=== PATIENT | female | born 1945 | race Caucasian/White ===

== ENCOUNTER 2019-08-30 20:13 | Emergency (ER) | payer MEDICARE, MEDICAID, SELFPAY ==
[2019-08-30 20:23] VITALS: BP 139/66; PULSE 100; RESP 16; TEMP 36.6; O2SAT 97
--- NOTE | 2019-08-30 20:41 | DI.RAD.S_ITS ---
PROCEDURE: XR CHEST 1V INDICATIONS: flu-like symptoms TECHNIQUE: One view of the chest was acquired. COMPARISON: None. FINDINGS: Surgical changes and devices: Cardiac defibrillator is unremarkable. Lungs and pleura: Lungs are clear. No pleural effusions or pneumothorax. The lung volumes are large and the diaphragms are flattened suggesting emphysema. Mediastinum: Mediastinal contours appear normal. Heart size is normal. Bones and chest wall: No suspicious bony lesions. Overlying soft tissues appear unremarkable. IMPRESSION: No acute cardiopulmonary findings. Emphysematous change. Dictated by: Daysi Law M.D. on 08/30/2019 at 21:34 Approved by: Daysi Law M.D. on 08/30/2019 at 21:34
[2019-08-30 20:50] VITALS: BP 176/70; PULSE 98; RESP 30; O2SAT 98
[2019-08-30 21:14] LABS: Add Manual Diff / Slide Review NO; Basophils Absolute Auto 100 /uL (0-100); Basophils Percent Auto 1.5 % (0-2); Eosinophils Absolute Auto 300 /uL (0-450); Eosinophils Percent Auto 4.8 % (2-4); Hematocrit 30.2 % (36-46); Hemoglobin 10.3 g/dL (12.0-16.0); Lymphocytes Absolute Auto 1100 /uL (1100-4500); Lymphocytes Percent Auto 18.1 % (25-40); Mean Corpuscular HGB Conc 34.2 % (30-36); Mean Corpuscular Hemoglobin 30.3 PG (26-34); Mean Corpuscular Volume 88.6 fL (80-100); Monocytes Absolute Auto 700 /uL (0-900); Monocytes Percent Auto 11.3 % (3-14); Neutrophils Absolute Auto 4000 /uL (1500-7000); Neutrophils Percent Auto 64.3 % (50-75); Platelet Count 287 X10^3/uL (150-400); Red Blood Cell Count 3.41 X10^6/uL (4.0-5.2); White Blood Cell Count 6.3 X10^3/uL (4.5-11.0)
[2019-08-30 21:22] LABS: Lactate (Lactic Acid) 0.9 mmol/L (0.7-2.1)
[2019-08-30 21:37] LABS: Alanine Aminotransferase 11 IU/L (<35); Albumin 4.3 g/dL (3.5-5.0); Albumin Globulin Ratio 1.4 (1.0-2.8); Alkaline Phosphatase 92 U/L (38-126); Aspartate Aminotransferase 24 IU/L (14-36); BUN Creatinine Ratio 9.9 (6-22); Bilirubin Total 0.3 mg/dL (0.2-1.3); Blood Urea Nitrogen 78 mg/dL (7-17); Calcium 9.3 mg/dL (8.4-10.2); Carbon Dioxide 12 mmol/L (22-32); Chloride 109 mmol/L (98-107); Creatine Kinase 104 U/L (30-135); Globulin 3.1 g/dL (1.7-4.1); Glucose 100 mg/dL (80-110); HEMOLYSIS < 15 (0-50); Sodium 137 mmol/L (137-145); Total Protein 7.4 g/dL (6.3-8.2)
[2019-08-30 21:40] LABS: C-Reactive Protein Quant < 0.5 mg/dL (<1.0); Potassium 5.7 mmol/L (3.4-5.1)
[2019-08-30] MEDS: SODIUM CHLORIDE 0.9% 1,000 ML 125 ML IV (21:40)
[2019-08-30 21:47] LABS: NT-proBNP (BNP-Adult 18+) 10900 pg/mL (<125); Troponin I 0.016 ng/mL (0.01-0.034)
[2019-08-30 21:50] LABS: CKMB % Relative Index 1.7 % (1.5-5.0); Creatine Kinase MB 1.81 ng/mL (<2.37)
[2019-08-30 21:53] LABS: Procalcitonin < 0.05 ng/mL (<0.5)
[2019-08-30 21:55] VITALS: BP 164/70; PULSE 90; RESP 30; O2SAT 98
--- NOTE | 2019-08-30 21:56 | PC.NURSE ---
Pt states she feels as if she may have to void but is only able to dribble. Has noted decreased urinary output over past weeks. today I think I peed earlier. Voided < 20 cc. Dip + but QNS for micro. sent for culture.
[2019-08-30 22:10] LABS: Ferritin 70 ng/mL (11-264)
--- NOTE | 2019-08-30 22:22 | ED.NAVMDI ---
HPI - Nausea/Vomiting/Diarrhea General Chief complaint: Nausea/Vomiting/Diarrhea Stated complaint: Nausea, Stomach Pain, Cloudy Feeling Time Seen by Provider: 08/30/19 20:43 Source: patient and family (Daughter) Mode of arrival: Ambulatory Limitations: no limitations History of Present Illness HPI Narrative: Patient is a 73-year-old female brought in by her daughter from [facility] for evaluation of several weeks/ month of nausea, subjective fevers, abdominal pain, and feeling ?foggy? and potentially having some altered mental status. Patient is normally alert and oriented x3 and lives on her own. She does admit that she does not go and see a doctor very often. Back in 2017 patient sustained a cardiac arrest related to a surgical procedure. She currently has a defibrillator/pacemaker in place. Patient's daughter who is with her at bedside states she drove from [facility] to come and see the patient in order to bring her to the doctor because the patient would not come. Patient states she has been eating and drinking. Has been having normal bowel movements. Has been urinating without problems. No rashes. No travel. No change in medications. Patient does admit that she has been feeling ?foggy? but does not know why this is happening. No trauma. Related Data Home Medications Medication Instructions Recorded Confirmed aspirin 81 mg PO DAILY 08/30/19 08/30/19 losartan 50 mg PO DAILY 08/30/19 08/30/19 metoprolol succinate 50 mg PO DAILY 08/30/19 08/30/19 Allergies Allergy/AdvReac Type Severity Reaction Status Date / Time Penicillins [PENICILLINS] Allergy Mild Unverified 08/01/17 13:04 Review of Systems Constitutional Constitutional: Denies chills, Denies daytime sleepiness, Denies fatigue, Denies fever(s), Denies headache(s), Denies lethargy, Denies malaise, Denies poor appetite and Denies weakness ENT Ears, Nose, Mouth, and Throat: Denies vertigo, Denies dizziness, Denies headache(s) and Denies disequilibrium Cardiovascular Cardiovascular: Denies chest pain, Denies diaphoresis, Denies syncope, Denies pedal edema, Denies edema and Reports dyspnea on exertion Respiratory Respiratory: Denies cough, Reports dyspnea on exertion and Denies wheezing Gastrointestinal Gastrointestinal: Reports abdominal pain, Denies change in stool character, Denies dyspepsia, Reports nausea and Denies vomiting Genitourinary Genitourinary: Denies urinary frequency, Denies difficulty voiding, Denies dysuria, Denies urinary incontinence, Denies urinary hesitancy and Denies urinary urgency Musculoskeletal Musculoskeletal: Denies myalgias, Denies arthralgias and Denies tingling Integumentary/Breasts Skin/Breast: Denies lesions and Denies rash Neurologic Neurologic: Reports behavioral changes, Reports confusion, Denies vertigo, Denies dizziness, Denies syncope, Denies headache(s), Denies tingling, Denies paresthesias, Denies disequilibrium and Denies weakness Psychiatric Psychiatric: Reports behavioral changes and Reports confusion Endocrine Endocrine: Denies fatigue Hematologic/Lymphatic Hematologic/Lymphatic: Denies easy bleeding and Denies easy bruising Allergic/Immunologic Allergic/Immunologic: Denies wheezing Patient History Medical History Cardiomyopathy (05/26/16) History of cardiac arrest (05/26/16) History of cigarette smoking (05/26/16) Malignant neoplasm of endometrium (02/10/16) Surgical History (Updated 08/21/17 @ 06:27 by Conversion Provider) Status post appendectomy Status post delivery Social History Smoking Status: Former smoker Smoking Status: Former smoker Substance Use Type: does not use Exam Initial Vital Signs Initial Vital Signs: Vital Signs Temperature 97.9 F 08/30/19 20:23 Pulse Rate 100 H 08/30/19 20:23 Respiratory Rate 16 08/30/19 20:23 Blood Pressure 139/66 08/30/19 20:23 Pulse Oximetry 97 08/30/19 20:23 Const General: cooperative, comfortable, well developed, well groomed and No acute distress HENNH Head: normal to inspection and normocephalic Resp Effort & Inspection: normal respiratory effort Auscultation: clear to auscultation bilaterally Cardio Rate: regular rate Rhythm: regular rhythm Pulses: radial pulses present GI Inspection: non-distended Palpation: soft and No firm Skin Lesions: no lesions Rashes: no rashes Neuro General: alert and awake Cognition: normal cognition Speech: speech normal Sensory Exam: no sensory deficits noted Other: Alert to person, place, date however thinks it is 2010 Extrem General: normal to inspection, capillary refill normal and No edema Psych Appearance: grossly normal and well kempt Scores GCS Adair coma scale eye opening: Spontaneous Adair coma scale verbal response: Confused Adair coma scale motor response: Obey commands Adair coma scale total score: 14 Course Orders Ordered: ED Orders 08/30/19 20:41 XR chest 1V Stat 08/30/19 20:45 EKG-12 Lead Stat 08/30/19 21:00 C-Reactive Protein Quant Stat Complete Blood Count AUTO DIFF Stat Comprehensive Metabolic Panel Stat Ferritin Stat Lactate (Lactic Acid) Stat NT-proBNP (BNP-Adult 18+) Stat Procalcitonin Stat Troponin & CK Cardiac Panel Stat 08/30/19 21:40 Blood Culture Stat Urine Culture Stat Sodium Chloride (Normal Saline 0.9%) 1,000 mls @ 125 mls/hr IV CONT LIBBY Last Admin: 08/30/19 21:40 Dose: 125 mls/hr Documented by: DALILA Ondansetron HCl (Zofran) 4 mg IV NOW ONE Stop: 08/30/19 23:17 Sodium Polystyrene Sulfonate (Kayexalate) 15 gm PO NOW ONE Stop: 08/30/19 23:17 Vital Signs Vital signs: Vital Signs - 8 hr 08/30/19 20:23 08/30/19 20:50 08/30/19 21:55 Temperature 97.9 F Pulse Rate 100 H 98 H 90 Respiratory Rate 16 30 H 30 H Blood Pressure 139/66 Blood Pressure [Left Arm] 176/70 H 164/70 H Pulse Oximetry 97 98 98 MDM - Nausea/Vomiting/Diarrhea Lab Data Attestation: I reviewed the patient's lab results. Result diagrams: 08/30/19 21:00 08/30/19 21:00 Labs: Lab Results 08/30/19 08/30/19 08/30/19 Range/Units 21:00 21:00 21:00 WBC 6.3 (4.5-11.0) X10^3/uL RBC 3.41 L (4.0-5.2) X10^6/uL Hgb 10.3 L (12.0-16.0) g/dL Hct 30.2 L (36-46) % MCV 88.6 (80-100) fL MCH 30.3 (26-34) PG MCHC 34.2 (30-36) % RDW 15.0 H (11.6-14.8) % Plt Count 287 (150-400) X10^3/uL Neut % (Auto) 64.3 (50-75) % Lymph % (Auto) 18.1 L (25-40) % [place] % (Auto) 11.3 (3-14) % Eos % (Auto) 4.8 H (2-4) % Baso % (Auto) 1.5 (0-2) % Neut # (Auto) 4000 (4862-6881) /uL Lymph # (Auto) 1100 (5634-7939) /uL [place] # (Auto) 700 (0-900) /uL Eos # (Auto) 300 (0-450) /uL Baso # (Auto) 100 (0-100) /uL Sodium 137 (137-145) mmol/L Potassium 5.7 H (3.4-5.1) mmol/L Chloride 109 H (98-107) mmol/L Carbon Dioxide 12 L (22-32) mmol/L BUN 78 H (7-17) mg/dL Creatinine 7.84 H* (0.52-1.04) mg/dL Estimated GFR 5.0 L (>60) mL/min BUN/Creatinine Ratio 9.9 (6-22) Glucose 100 (80-110) mg/dL Lactate (0.7-2.1) mmol/L Calcium 9.3 (8.4-10.2) mg/dL Ferritin 70 (11-264) ng/mL Total Bilirubin 0.3 (0.2-1.3) mg/dL AST 24 (14-36) IU/L ALT 11 (<35) IU/L Alkaline Phosphatase 92 (38-126) U/L Total Creatine Kinase 104 (30-135) U/L CK-MB (CK-2) 1.81 (<2.37) ng/mL CK-MB (CK-2) Rel Index 1.7 (1.5-5.0) % Troponin I 0.016 (0.01-0.034) ng/mL C-Reactive Protein < 0.5 (<1.0) mg/dL NT-Pro-B Natriuret Pep 04873 H (<125) pg/mL Total Protein 7.4 (6.3-8.2) g/dL Albumin 4.3 (3.5-5.0) g/dL Globulin 3.1 (1.7-4.1) g/dL Albumin/Globulin Ratio 1.4 (1.0-2.8) Procalcitonin < 0.05 (<0.5) ng/mL 08/30/19 Range/Units 21:00 WBC (4.5-11.0) X10^3/uL RBC (4.0-5.2) X10^6/uL Hgb (12.0-16.0) g/dL Hct (36-46) % MCV (80-100) fL MCH (26-34) PG MCHC (30-36) % RDW (11.6-14.8) % Plt Count (150-400) X10^3/uL Neut % (Auto) (50-75) % Lymph % (Auto) (25-40) % [place] % (Auto) (3-14) % Eos % (Auto) (2-4) % Baso % (Auto) (0-2) % Neut # (Auto) (3001-3176) /uL Lymph # (Auto) (4641-0653) /uL [place] # (Auto) (0-900) /uL Eos # (Auto) (0-450) /uL Baso # (Auto) (0-100) /uL Sodium (137-145) mmol/L Potassium (3.4-5.1) mmol/L Chloride (98-107) mmol/L Carbon Dioxide (22-32) mmol/L BUN (7-17) mg/dL Creatinine (0.52-1.04) mg/dL Estimated GFR (>60) mL/min BUN/Creatinine Ratio (6-22) Glucose (80-110) mg/dL Lactate 0.9 (0.7-2.1) mmol/L Calcium (8.4-10.2) mg/dL Ferritin (11-264) ng/mL Total Bilirubin (0.2-1.3) mg/dL AST (14-36) IU/L ALT (<35) IU/L Alkaline Phosphatase (38-126) U/L Total Creatine Kinase (30-135) U/L CK-MB (CK-2) (<2.37) ng/mL CK-MB (CK-2) Rel Index (1.5-5.0) % Troponin I (0.01-0.034) ng/mL C-Reactive Protein (<1.0) mg/dL NT-Pro-B Natriuret Pep (<125) pg/mL Total Protein (6.3-8.2) g/dL Albumin (3.5-5.0) g/dL Globulin (1.7-4.1) g/dL Albumin/Globulin Ratio (1.0-2.8) Procalcitonin (<0.5) ng/mL Urine Dip Bedside Urine Glucose Negative Bedside Urine Bilirubin - Negative Bedside Urine Ketone - Negative Urine Specific [place] 1.015 Bedside Urine Occult Blood +++ Bedside Urine pH 6.0 Bedside Urine Protein +++ 300 Bedside Urine Urobilinogen - Negative Bedside Urine Nitrite - Negative Bedside Urine Leukocytes +++ 500 Esterase Imaging Data Chest x-ray: Radiologist's Impression: [address] [address] XRay Report Signed Patient: Katie Tavera#: [id number] : 5Acct:[id number] Age/Sex: 73 / FDate of Service: 08/30/19 Loc: ED Accession Number: [id number] Procedure: XR chest 1V Ordering Provider: Zhou Escalante D.O. PROCEDURE: XR CHEST 1V INDICATIONS: flu-like symptoms TECHNIQUE: One view of the chest was acquired. COMPARISON: None. FINDINGS: Surgical changes and devices: Cardiac defibrillator is unremarkable. Lungs and pleura: Lungs are clear. No pleural effusions or pneumothorax. The lung volumes are large and the diaphragms are flattened suggesting emphysema. Mediastinum: Mediastinal contours appear normal. Heart size is normal. Bones and chest wall: No suspicious bony lesions. Overlying soft tissues appear unremarkable. IMPRESSION: No acute cardiopulmonary findings. Emphysematous change. Dictated by: Daysi Law M.D. on 08/30/2019 at 21:34 Approved by: Daysi Law M.D. on 08/30/2019 at 21:34 ECG Data Attestation: I personally reviewed and interpreted this ECG as follows: Prior ECG tracings: not available for review Interpretation: Sinus rhythm Ventricular rate of 92 Left axis deviation Left bundle-branch block QRS 120 milliseconds Normal QTC No ST T wave changes MDM Narrative Medical decision making narrative: Patient is here with her daughter. She is calm and cooperative. Has a normal neurologic exam except that she thinks it is 2009. Patient's daughter states she is normally alert and oriented without any problems. Seems that her symptoms have been going on for at least the past several weeks if not potentially longer than a month. Labs today showed a markedly elevated creatinine with a decrease in GFR. Does have an elevated potassium however no EKG changes resulting from this. I am unsure why her creatinine is elevated today. This does not seem to be a prerenal issue. Patient has been tolerating oral intake in eating well per her report however there is potentially some concern that she may not be eating or drinking as much as which she thinks given her ?fogginess?. Her urinalysis does not show any signs of infection. This is not seem to be a outlet obstruction issue. Bladder scan shows 77 cc of urine. Patient states she has been urinating without any problems. Patient has no signs infection. She is not clinically fluid overloaded. I did discuss the case with Dr. Moody at [facility] who accepts the patient. I also discussed the case with Nephrology who agreed to see the patient tomorrow morning. Nephrology recommended given the patient Kayexalate. The did discuss the transfer with the patient and daughter. They are stable for transport. They expressed understanding and agreement. Discharge Plan Departure Patient Disposition: [facility] Clinical Impression: Acute renal failure, Nausea Prescriptions: No Action losartan 50 mg Tablet 50 mg PO DAILY RF: 0 metoprolol succinate 50 mg Tablet Extended Release 24 Hr 50 mg PO DAILY RF: 0 aspirin 81 mg Tablet,Chewable 81 mg PO DAILY RF: 0 Referrals: Chandrika Rascon MD [Primary Care Provider] -
[2019-08-30] MEDS: ONDANSETRON 4 MG/2 ML INJ IV (23:24)
[2019-08-30] MEDS: SODIUM POLYSTYRENE SULFON/SORB 15 GM/60 ML CUP PO (23:44)
[2019-08-30 23:57] VITALS: BP 174/74; PULSE 88; RESP 16; O2SAT 97
== END 2019-08-30 23:57 | disposition short-term general hospital (02) ==
PROVIDERS: Emergency Provider Emergency Medicine; Family Provider Specialist; PCP Specialist
DX: N19 Unspecified kidney failure (principal); R11.0 Nausea; R07.9 Chest pain, unspecified; Z95.0 Presence of cardiac pacemaker; R79.89 Other specified abnormal findings of blood chemistry; R10.9 Unspecified abdominal pain; R68.89 Other general symptoms and signs
CPT/HCPCS: 36415; 51798; 71045; 80053; 81003; 82550; 82553; 82728; 83605; 83880; 84145; 84484; 85025; 86140; 87040; 87086; 93005; 96361; 96374; 99285; J2405